=== PATIENT | male | born 1945 | race Caucasian/White ===

== ENCOUNTER 2018-03-11 07:15 | Inpatient (IN) | payer OTHER, MEDICARE ==
[~2018-03-11] VITALS: Ht 188 cm; Wt 95.9 kg
[~2018-03-11 07:15] MED LIST: ADVAIR HFA120 INHALA IH; ALBUTEROL SULF8.5 GM IH; AMLODIPINE BESYL5 MG PO; CHILDREN'S ASPI81 M1 PO; LEVAQUIN500 MG PO; LOSARTAN-HCTZ1 EACH PO; METOPROLOL TART50 MG PO; MONTELUKAST SOD10 MG PO; OCUVITE LUTEIN1 EACH PO; OCUVITE TABLET1 EACH PO; PREDNISONE10 MG PO; SIMVASTATIN40 MG PO; SIMVASTATIN80 MG PO; SINGULAIR10 MG PO; ST. JOSEPH ASPI81 MG PO; TAMIFLU75 MG PO; TAMSULOSIN HCL0.4 MG PO; TUMERIC PO; VALSARTAN-HCTZ1 EAC1; ZYRTEC10 M2 PO
[2018-03-11 08:13] LABS: BASOPHIL (%) 0.3 % (0-1); EOSINOPHIL COUNT 0.3 K/uL (0-0.3); HEMATOCRIT 42.2 % (38.0-50.0); HEMOGLOBIN 14.6 G/DL (12.5-16.6); IMMATURE GRANULOCYTE (%) 0.5 % (0.0-0.7); LYMPHOCYTE COUNT 1.6 K/uL (1.0-2.8); MCH 30.7 PG (29.0-34.0); MCHC 34.6 G/DL (30.0-36.0); MCV 88.7 FL (86-99); MONOCYTE (%) 8.3 % (3-12); MONOCYTE COUNT 1.2 K/uL (0-0.8); NEUTROPHIL (%) 77.9 % (45-76); NEUTROPHIL COUNT 11.5 K/uL (1.8-6.4); PLATELET COUNT 268 K/uL (156-360); RBC DIS.WIDTH-CV 12.7 % (11.8-14.6); RBC DIS.WIDTH-SD 41.6 % (39-53); RED BLOOD COUNT 4.76 M/uL (4.00-5.50); WHITE BLOOD COUNT 14.8 K/uL (4.1-10.2)
[2018-03-11 08:24] LABS: CHLORIDE 102 mEq/L (99-109); POTASSIUM 4.1 mEq/L (3.7-5.4); SODIUM 142 mEq/L (136-147)
[2018-03-11] MEDS ORDERED: DOXYCYCLINE HY100 MG PO (08:25)
[2018-03-11 08:26] LABS: GLUCOSE 108 mg/dL (70-99)
[2018-03-11] MEDS ORDERED: PROAIR HFA8.5 GM IH (08:27)
[2018-03-11] MEDS ORDERED: MAGNESIUM250 MG PO (08:29)
[2018-03-11 08:30] LABS: GFR ESTIMATE (CALCULATED) > 59 mL/min/ (58.99-99999)
[2018-03-11] MEDS ORDERED: CYANOCOBALAM1000 MCG PO (08:30)
[2018-03-11 08:31] LABS: UREA NITROGEN (BUN) 11 mg/dL (9-23)
[2018-03-11] MEDS ORDERED: VITAMIN C500 M6 PO (08:31)
[2018-03-11] MEDS ORDERED: NASACORT10.8 ML BOTH NARES (08:31)
[2018-03-11] MEDS ORDERED: SAW PALMETTO450 MG PO (08:31)
[2018-03-11 13:03] VITALS: BP 107/63
[2018-03-11 16:06] VITALS: BP 130/70
[2018-03-11 19:03] VITALS: BP 113/64
[2018-03-11 22:51] VITALS: BP 125/70
[2018-03-12 03:51] VITALS: BP 98/66
[2018-03-12 06:53] LABS: HEMATOCRIT 40.3 % (38.0-50.0); HEMOGLOBIN 13.1 G/DL (12.5-16.6); MCH 29.4 PG (29.0-34.0); MCHC 32.5 G/DL (30.0-36.0); MCV 90.4 FL (86-99); PLATELET COUNT 277 K/uL (156-360); RBC DIS.WIDTH-CV 12.8 % (11.8-14.6); RBC DIS.WIDTH-SD 42.6 % (39-53); RED BLOOD COUNT 4.46 M/uL (4.00-5.50)
[2018-03-12 07:13] LABS: CHLORIDE 99 MEQ/L (99-109); CREATININE 0.8 MG/DL (0.6-1.3); GFR ESTIMATE (CALCULATED) > 59 mL/min/ (58.99-99999); GLUCOSE 97 mg/dL (70-99); POTASSIUM 4.1 MEQ/L (3.7-5.4); SODIUM 138 MEQ/L (136-147); UREA NITROGEN (BUN) 10 mg/dL (9-23)
[2018-03-12 07:32] VITALS: BP 115/75
[2018-03-12 12:28] VITALS: BP 116/67
[2018-03-12 16:29] VITALS: BP 106/61
[2018-03-12 21:00] VITALS: BP 122/74
[2018-03-12 23:25] VITALS: BP 102/58; BP 120/58
[2018-03-13 03:51] VITALS: BP 113/60
[2018-03-13 06:24] LABS: BASOPHIL (%) 0.3 % (0-1); EOSINOPHIL COUNT 0.3 K/uL (0-0.3); HEMATOCRIT 41.5 % (38.0-50.0); HEMOGLOBIN 13.7 G/DL (12.5-16.6); IMMATURE GRANULOCYTE (%) 0.3 % (0.0-0.7); LYMPHOCYTE (%) 19.3 % (15-42); LYMPHOCYTE COUNT 1.8 K/uL (1.0-2.8); MCH 29.9 PG (29.0-34.0); MCV 90.6 FL (86-99); MONOCYTE (%) 10.2 % (3-12); NEUTROPHIL (%) 66.9 % (45-76); NEUTROPHIL COUNT 6.4 K/uL (1.8-6.4); PLATELET COUNT 305 K/uL (156-360); RBC DIS.WIDTH-CV 12.9 % (11.8-14.6); RBC DIS.WIDTH-SD 42.6 % (39-53); RED BLOOD COUNT 4.58 M/uL (4.00-5.50); WHITE BLOOD COUNT 9.5 K/uL (4.1-10.2)
[2018-03-13 06:44] LABS: CHLORIDE 100 MEQ/L (99-109); CREATININE 0.8 MG/DL (0.6-1.3); GFR ESTIMATE (CALCULATED) > 59 mL/min/ (58.99-99999); GLUCOSE 92 mg/dL (70-99); POTASSIUM 4.1 MEQ/L (3.7-5.4); SODIUM 140 MEQ/L (136-147); UREA NITROGEN (BUN) 12 mg/dL (9-23)
[2018-03-13 11:28] VITALS: BP 110/68
[2018-03-13 16:55] VITALS: BP 134/61
[2018-03-13 20:10] VITALS: BP 101/63
[2018-03-13 23:25] VITALS: BP 106/69
[2018-03-14 03:55] VITALS: BP 121/75
[2018-03-14 06:17] LABS: BASOPHIL (%) 0 % (0-1); EOSINOPHIL (%) 0 % (0-5); HEMATOCRIT 37.1 % (38.0-50.0); HEMOGLOBIN 12.5 G/DL (12.5-16.6); IMMATURE GRANULOCYTE (%) 0.5 % (0.0-0.7); LYMPHOCYTE (%) 8.8 % (15-42); MCH 30.3 PG (29.0-34.0); MCHC 33.7 G/DL (30.0-36.0); MONOCYTE (%) 2.4 % (3-12); MONOCYTE COUNT 0.3 K/uL (0-0.8); NEUTROPHIL (%) 88.3 % (45-76); NEUTROPHIL COUNT 9.8 K/uL (1.8-6.4); PLATELET COUNT 294 K/uL (156-360); RBC DIS.WIDTH-CV 12.6 % (11.8-14.6); RBC DIS.WIDTH-SD 41.6 % (39-53); RED BLOOD COUNT 4.12 M/uL (4.00-5.50); WHITE BLOOD COUNT 11.1 K/uL (4.1-10.2)
[2018-03-14 06:44] LABS: CHLORIDE 104 MEQ/L (99-109); CREATININE 0.9 MG/DL (0.6-1.3); GFR ESTIMATE (CALCULATED) > 59 mL/min/ (58.99-99999); GLUCOSE 137 mg/dL (70-99); POTASSIUM 4.7 MEQ/L (3.7-5.4); SODIUM 142 MEQ/L (136-147); UREA NITROGEN (BUN) 14 mg/dL (9-23)
[2018-03-14 07:20] VITALS: BP 119/69
[2018-03-14] MEDS ORDERED: MUCINEX600 MG PO (09:47)
[2018-03-14] MEDS ORDERED: BENZONATATE100 MG PO (09:47)
[2018-03-14] MEDS ORDERED: AUGMENTIN875 MG PO (09:47)
[2018-03-14] MEDS ORDERED: PREDNISONE10 MG PO (09:47)
== END 2018-03-14 12:50 | disposition home health service (06) | DRG 195 ==
LOC: EME 07:15 → EDOF 09:32 → ENRESERV 09:45 → 5EAST 12:39 → ENPENDDIS 03-14 → 5EAST 03-14 12:50
PROVIDERS: Emergency Medicine; Internal Medicine
DX: J18.9 Pneumonia, unspecified organism (principal); R06.03 Acute respiratory distress; R09.02 Hypoxemia; I25.10 Atherosclerotic heart disease of native coronary artery without angina pectoris; N40.0 Benign prostatic hyperplasia without lower urinary tract symptoms; I10 Essential (primary) hypertension; E78.5 Hyperlipidemia, unspecified; Z87.891 Personal history of nicotine dependence; Z95.1 Presence of aortocoronary bypass graft; Z79.82 Long term (current) use of aspirin
CPT/HCPCS: 71045; 80048; 83605; 85025; 85027; 87040; 87070; 87205; 93005; 94640; 94640 76; 94799; 99202; 99281; 99285; J0456; J0696; J1650; J2930; J7030

== ENCOUNTER 2018-03-15 04:40 | Inpatient (IN) | payer OTHER, MEDICARE ==
[~2018-03-15] VITALS: Ht 188 cm; Wt 94.7 kg
[~2018-03-15 04:40] MED LIST changes: +AUGMENTIN875 MG PO; +BENZONATATE100 MG PO; +CYANOCOBALAM1000 MCG PO; +DOXYCYCLINE HY100 MG PO; +MAGNESIUM250 MG PO; +MUCINEX600 MG PO; +NASACORT10.8 ML BOTH NARES; +PROAIR HFA8.5 GM IH; +SAW PALMETTO450 MG PO; +VITAMIN C500 M6 PO
[2018-03-15 05:26] LABS: BASE EXCESS 3.2 mEq/L (-3 to +3); BICARBONATE 29.1 mEq/L (22-26); CARBOXY HGB 1.1 % (0-5); METHEMOGLOBIN 0.9 % (0-1.5); PCO2 48 mm Hg (35-45); PO2 74 mm Hg (80-100); pH 7.39 (7.35-7.45)
[2018-03-15 05:27] LABS: COMMENTS - BLOOD GASES C+; DEVICE RA; SITE RR; TOTAL RESP RATE 18 resp/min
[2018-03-15 05:43] LABS: BASOPHIL (%) 0.2 % (0-1); BASOPHIL COUNT 0.1 K/uL (0-0.1); EOSINOPHIL (%) 0 % (0-5); HEMATOCRIT 39.4 % (38.0-50.0); HEMOGLOBIN 13.7 G/DL (12.5-16.6); IMMATURE GRANULOCYTE (%) 1.3 % (0.0-0.7); LYMPHOCYTE (%) 6.8 % (15-42); MCH 30.9 PG (29.0-34.0); MCHC 34.8 G/DL (30.0-36.0); MCV 88.7 FL (86-99); MONOCYTE (%) 5.7 % (3-12); MONOCYTE COUNT 1.7 K/uL (0-0.8); NEUTROPHIL COUNT 25.6 K/uL (1.8-6.4); PLATELET COUNT 349 K/uL (156-360); RBC DIS.WIDTH-CV 12.8 % (11.8-14.6); RBC DIS.WIDTH-SD 41.4 % (39-53); RED BLOOD COUNT 4.44 M/uL (4.00-5.50); WHITE BLOOD COUNT 29.7 K/uL (4.1-10.2)
[2018-03-15 05:57] LABS: ALBUMIN 3.7 g/dL (3.2-4.8); CHLORIDE 104 mEq/L (99-109); POTASSIUM 4.1 mEq/L (3.7-5.4); SODIUM 143 mEq/L (136-147)
[2018-03-15 05:58] LABS: MAGNESIUM 2.1 mg/dL (1.3-2.7)
[2018-03-15 05:59] LABS: GLUCOSE 105 mg/dL (70-99); TOTAL PROTEIN 6.5 g/dL (6.4-8.3)
[2018-03-15 06:01] LABS: TOTAL BILIRUBIN 0.4 mg/dL (0.0-1.0)
[2018-03-15 06:03] LABS: ALKALINE PHOSPHATASE 61 IU/L (3-129); CREATININE 0.9 mg/dL (0.6-1.3); GFR ESTIMATE (CALCULATED) > 59 mL/min/ (58.99-99999)
[2018-03-15 06:04] LABS: UREA NITROGEN (BUN) 20 mg/dL (9-23)
[2018-03-15 06:05] LABS: AST (GOT) 52 IU/L (2-34)
[2018-03-15 06:06] LABS: ALT (GPT) 88 IU/L (3-49)
[2018-03-15 06:07] LABS: TROP-I INTERPRETATION NEGATIVE; TROPONIN-I 0.01 ng/mL (0.0-0.30)
[2018-03-15 12:06] LABS: APPEARANCE CLEAR ((CLEAR)); BILIRUBIN NEGATIVE; BLOOD NEGATIVE; COLOR STRAW ((YELLOW)); GLUCOSE (STRIP) NEGATIVE; KETONES NEGATIVE; LEUKOCYTES NEGATIVE; NITRITE NEGATIVE; PROTEIN (STRIP) NEGATIVE; SPECIFIC GRAVITY 1.031 (1.000-1.030); UCUL ADDED? NO; UROBILINOGEN 0.2 MG/DL (0.2-1.0)
[2018-03-15 12:11] VITALS: BP 125/87
[2018-03-15 12:54] LABS: TROP-I INTERPRETATION NEGATIVE; TROPONIN-I 0.02 ng/mL (0.0-0.30)
[2018-03-15 15:48] VITALS: BP 112/62
[2018-03-15 18:55] VITALS: BP 116/70
[2018-03-15 23:30] VITALS: BP 115/70
[2018-03-16 04:17] VITALS: BP 119/73
[2018-03-16 06:27] LABS: HEMATOCRIT 39.2 % (38.0-50.0); HEMOGLOBIN 12.9 G/DL (12.5-16.6); MCH 29.8 PG (29.0-34.0); MCHC 32.9 G/DL (30.0-36.0); MCV 90.5 FL (86-99); PLATELET COUNT 333 K/uL (156-360); RBC DIS.WIDTH-CV 12.8 % (11.8-14.6); RBC DIS.WIDTH-SD 42.5 % (39-53); RED BLOOD COUNT 4.33 M/uL (4.00-5.50); WHITE BLOOD COUNT 14.6 K/uL (4.1-10.2)
[2018-03-16 06:52] LABS: CHLORIDE 98 MEQ/L (99-109); CREATININE 0.9 MG/DL (0.6-1.3); GFR ESTIMATE (CALCULATED) > 59 mL/min/ (58.99-99999); GLUCOSE 115 mg/dL (70-99); POTASSIUM 3.9 MEQ/L (3.7-5.4); SODIUM 140 MEQ/L (136-147); UREA NITROGEN (BUN) 18 mg/dL (9-23)
[2018-03-16 07:51] VITALS: BP 139/64
[2018-03-16 11:56] VITALS: BP 110/61
[2018-03-16 16:32] VITALS: BP 127/64
[2018-03-16 19:26] VITALS: BP 135/74
[2018-03-16 23:32] VITALS: BP 110/69
[2018-03-17 04:01] VITALS: BP 117/73
[2018-03-17 05:18] LABS: BASOPHIL (%) 0.2 % (0-1); EOSINOPHIL (%) 0.6 % (0-5); EOSINOPHIL COUNT 0.1 K/uL (0-0.3); HEMATOCRIT 37.6 % (38.0-50.0); HEMOGLOBIN 12.5 G/DL (12.5-16.6); IMMATURE GRANULOCYTE (%) 0.6 % (0.0-0.7); MCH 29.6 PG (29.0-34.0); MCHC 33.2 G/DL (30.0-36.0); MCV 89.1 FL (86-99); NEUTROPHIL (%) 74.6 % (45-76); NEUTROPHIL COUNT 9.4 K/uL (1.8-6.4); PLATELET COUNT 341 K/uL (156-360); RBC DIS.WIDTH-CV 12.5 % (11.8-14.6); RBC DIS.WIDTH-SD 41.2 % (39-53); RED BLOOD COUNT 4.22 M/uL (4.00-5.50); WHITE BLOOD COUNT 12.6 K/uL (4.1-10.2)
[2018-03-17 05:50] LABS: CHLORIDE 101 MEQ/L (99-109); CREATININE 0.8 MG/DL (0.6-1.3); GFR ESTIMATE (CALCULATED) > 59 mL/min/ (58.99-99999); GLUCOSE 103 mg/dL (70-99); POTASSIUM 3.7 MEQ/L (3.7-5.4); SODIUM 142 MEQ/L (136-147); UREA NITROGEN (BUN) 23 mg/dL (9-23)
[2018-03-17 07:37] VITALS: BP 139/77
[2018-03-17 11:53] VITALS: BP 128/63
[2018-03-17] MEDS ORDERED: DOXYCYCLINE HY100 M3 PO (14:07)
[2018-03-17] MEDS ORDERED: ROBITUSSIN AC,T10 ML PO (14:09)
== END 2018-03-17 14:51 | disposition home or self-care (01) | DRG 193 ==
LOC: EME 04:40 → EDOF 08:52 → ENRESERV 08:58 → EDOF 09:04 → ENRESERV 09:26 → 4SOUTH 10:05
PROVIDERS: Emergency Medicine; Internal Medicine; Student in an Organized Health Care Education/Training Program
DX: J18.9 Pneumonia, unspecified organism (principal); R06.03 Acute respiratory distress; Q79.1 Other congenital malformations of diaphragm; I10 Essential (primary) hypertension; R09.02 Hypoxemia; I25.10 Atherosclerotic heart disease of native coronary artery without angina pectoris; E78.5 Hyperlipidemia, unspecified; I45.10 Unspecified right bundle-branch block; N40.0 Benign prostatic hyperplasia without lower urinary tract symptoms; J98.01 Acute bronchospasm; Z95.1 Presence of aortocoronary bypass graft; Z87.01 Personal history of pneumonia (recurrent); Z87.891 Personal history of nicotine dependence; Z87.442 Personal history of urinary calculi; Z79.82 Long term (current) use of aspirin; Z82.49 Family history of ischemic heart disease and other diseases of the circulatory system
CPT/HCPCS: 36600; 71045; 71275; 80048; 80053; 81003; 82803; 83735; 83880; 84484; 85025; 85027; 87040; 87070; 87205; 87449; 87502; 93005; 93306; 94640; 94640 76; 94799; 99202; 99281; 99285; J0692; J1650; J1940; J7512